=== PATIENT | female | born 1990 | race Asian ===

== ENCOUNTER 2016-11-25 21:00 | Emergency (ER) | payer MEDICAID ==
[~2016-11-25] VITALS: Ht 170.2 cm; Wt 92.4 kg
[2016-11-25 22:28] LABS: HEMOGLOBIN 13.3 g/dL (11.7-16.4)
[2016-11-25 22:29] LABS: PATH.CAST-FLAG NOT PRESENT; SPERM-FLAG NOT PRESENT; SRC-FLAG NOT PRESENT; XTAL-FLAG NOT PRESENT; YLC-FLAG NOT PRESENT
[2016-11-25 22:32] LABS: HCG UR OBC PASS
[2016-11-25 22:39] LABS: BLOOD UREA NITROGEN 15 mg/dL (7-18)
[2016-11-26 00:02] VITALS: BP 122/64
== END 2016-11-26 00:05 | disposition home or self-care (01) ==
LOC: ED 11-26 00:01
DX: N93.8 Other specified abnormal uterine and vaginal bleeding (principal); N30.00 Acute cystitis without hematuria
CPT/HCPCS: 36415; 80048; 81001; 81025; 82040; 84443; 85025; 87086; 87491; 87591; 99284